=== PATIENT | male | born 1945 | race Asian ===

== ENCOUNTER 2025-06-06 16:11 | Outpatient (CLI) | payer MEDICARE, SELFPAY ==
--- NOTE | ~2025-06-06 | XR_ITS ---
EXAMINATION: XR knee RT 3V, 06/06/2025 16:25 MEDICAL COLLECTIONS REPRESENTATIVE HISTORY: M25.561 - Pain in right knee COMPARISON: No comparisons available. Findings: No acute fracture or malalignment. Moderate tricompartmental degenerative changes, small to moderate effusion Soft tissues unremarkable. Impression: No acute fracture or malalignment. Reviewed, dictated and finalized at location P. CAL COLLECTIONS REPRESENTATIVE Impression: No acute fracture or malalignment.
== END 2025-06-06 16:12 | disposition home or self-care (01) ==
LOC: MICIMG 16:13
PROVIDERS: PCP Family Medicine Adolescent Medicine; Visit Provider Family Medicine Adolescent Medicine
DX: M25.561 Pain in right knee (principal); M25.461 Effusion, right knee
CPT/HCPCS: 73562